=== PATIENT | male | born 1960 | race Caucasian/White ===

== ENCOUNTER 2025-01-19 21:41 | Inpatient (IN) ==
[2025-01-19] MEDS: SODIUM CHLORIDE 0.9% 1,000 ML IV SCH (21:48)
[2025-01-19] MEDS: LORazepam 1 MG/1 ML SYR ED Inj Use IV STA (21:48)
[2025-01-19] MEDS: OPTIRAY 320 100ml IV ONE (21:58)
[2025-01-19 22:03] LABS: Hematocrit (blood only) 31.5 % (42.0-52.0); Hemoglobin 11.8 g/dl (14.0-18.0); Immature Granulocytes # (auto) 0.09 K/uL (0.01-0.20); Immature Granulocytes % (auto) 0.8 %; Mean Corpuscular Hemoglobin 35.9 pg (25.0-34.0); Mean Corpuscular Volume 95.7 fL (80.0-100.0); Platelet Count 394 K/uL (130-400); RDW Standard Deviation 39.4 fL (36.4-46.3); Red Blood Count 3.29 M/uL (4.70-6.10); White Blood Count 11.52 K/ul (4.8-10.8)
[2025-01-19 22:21] LABS: Anion Gap 14.0 (3-11); Bilirubin,Total 1.0 mg/dl (0.2-1.0); Calcium 9.1 mg/dl (8.6-10.3); Carbon Dioxide 23.0 mmol/L (21-32); Chloride 82.0 mmol/L (98-107); Potassium 3.7 mmol/L (3.5-5.1); Sodium 119.0 mmol/L (136-145)
--- NOTE | 2025-01-19 22:23 | CT Scan Report ---
Exam(s): CT HEAD Without Contrast EXAM: CT Head Without Intravenous Contrast CLINICAL HISTORY: Reason for exam: Trauma. TECHNIQUE: Axial computed tomography images of the head/brain without intravenous contrast. CTDI is 64.12 mGy and DLP is 1098.96 mGy-cm. Automated exposure control was utilized for the study. A dose lowering technique was utilized adhering to the principles of ALARA. COMPARISON: None FINDINGS: Brain: No acute infarct or hemorrhage identified. No extra-axial fluid collection. No mass effect or midline shift. Scattered areas of hypoattenuation in the supratentorial white matter likely represent chronic small vessel ischemic changes. Ventricles and sulci: Prominence of the ventricles and sulci is likely secondary to cerebral volume loss. Bones: Normal. No bony lesion or acute fracture. Subcutaneous tissues: Normal. Sinuses: Mild mucosal thickening in the maxillary sinuses, right sphenoid sinus, and frontal sinuses. Moderate mucosal thickening in the ethmoid air cells. Mastoid air cells: Normal. Orbits: Grossly unremarkable. Other: Atherosclerotic calcifications in the intracranial vasculature. IMPRESSION: 1. No acute intracranial abnormality. 2. Mild chronic small vessel ischemic changes and cerebral volume loss. Electronically signed by: Ramon Pierson M.D. 01/19/25 22:22 PM
[2025-01-19 22:26] LABS: Alanine Aminotransferase 39.0 U/L (7-52); Albumin Globulin Ratio 1.4 (0.9-2); Alkaline Phosphatase 95.0 U/L (34-104); Blood Urea Nitrogen 28.0 mg/dl (6-23); Creatinine Clr Calc Pharmacy 51.1 ml/min; Globulin 3.0 gm/dl (2.5-4.0); Glucose 105.0 mg/dl (70-99(Fasting)); Lipase 23.0 U/L (11-82); Total Protein 7.1 gm/dl (6.0-8.3)
--- NOTE | 2025-01-19 22:27 | CT Scan Report ---
Exam(s): CT ABDOMEN + PELVIS With Contrast IV Amt: 90 ml optiray 320 EXAM: CT Abdomen and Pelvis With Intravenous Contrast CLINICAL HISTORY: Reason for exam: Trauma. TECHNIQUE: Axial computed tomography images of the abdomen and pelvis with intravenous contrast. CTDI is 19.59 mGy and DLP is 945.94 mGy-cm. Automated exposure control was utilized for the study. A dose lowering technique was utilized adhering to the principles of ALARA. CONTRAST: Patient received 90 ml optiray 320 of IV contrast COMPARISON: None FINDINGS: Lung bases: Unremarkable. No mass. No consolidation. ABDOMEN: Liver: Hepatic steatosis. Hepatomegaly. Gallbladder and bile ducts: Unremarkable. No calcified stones. No ductal dilation. Pancreas: Unremarkable. No mass. No ductal dilation. Spleen: Unremarkable. No splenomegaly. Adrenals: Unremarkable. No mass. Kidneys and ureters: Unremarkable. No hydronephrosis or obstructing ureteral stone. Stomach and bowel: Evaluation of the stomach is limited by underdistention. Diverticulosis without evidence of diverticulitis. PELVIS: Appendix: Appendix is not definitely visualized on this exam. Bladder: Unremarkable. No mass. Reproductive: Prostatomegaly. ABDOMEN and PELVIS: Intraperitoneal space: Unremarkable. No free air. No significant fluid collection. Bones/joints: Mild curvature of the spine. Degenerative changes of the spine. Grade 1 anterolisthesis of L4 on L5. Mildly displaced fractures of the left posterior 10th and 11th ribs. Question mildly nondisplaced fractures of the left posteromedial 11th and 12th ribs. Nondisplaced fracture of the left L1 transverse process. No dislocation. Soft tissues: Small fat containing umbilical hernia. Vasculature: Phleboliths in the pelvis. Atherosclerotic changes of the vasculature. No abdominal aortic aneurysm or dissection. Lymph nodes: Unremarkable. No enlarged lymph nodes. IMPRESSION: Prostatomegaly. Mildly displaced fractures of the left posterior 10th and 11th ribs. Question mildly nondisplaced fractures of the left posteromedial 11th and 12th ribs. Nondisplaced fracture of the left L1 transverse process. Electronically signed by: Ramon Pierson M.D. 01/19/25 22:26 PM
--- NOTE | 2025-01-19 22:29 | CT Scan Report ---
Exam(s): CT FACIAL Without Contrast EXAM: CT Maxillofacial Without Intravenous Contrast CLINICAL HISTORY: Reason for exam: Trauma. TECHNIQUE: Axial computed tomography images of the face without intravenous contrast. CTDI is 26.96 mGy and DLP is 751.92 mGy-cm. Automated exposure control was utilized for the study. A dose lowering technique was utilized adhering to the principles of ALARA. COMPARISON: None FINDINGS: Bones/joints: No acute facial fracture identified. Soft tissues: Possible mild left maxillary soft tissue swelling. Orbits: Unremarkable. Sinuses: Mild mucosal thickening in the maxillary sinuses. Mild mucosal thickening in the right sphenoid sinus. Moderate mucosal thickening in the ethmoid air cells. Mild mucosal thickening in the frontal sinuses. No air-fluid levels. Dental: Dental disease. IMPRESSION: 1. No acute facial fracture identified. 2. Possible mild left maxillary soft tissue swelling. Electronically signed by: Ramon Pierson M.D. 01/19/25 22:29 PM
[2025-01-19 22:32] LABS: INR 0.9 (0.9-1.1); Partial Thromboplastin Time 22 Seconds (21-31); Prothrombin Time 9.6 Seconds (9.0-12.0)
--- NOTE | 2025-01-19 22:40 | CT Scan Report ---
Exam(s): CT C SPINE EXAM: CT Cervical Spine Without Intravenous Contrast CLINICAL HISTORY: Reason for exam: Trauma. TECHNIQUE: Axial computed tomography images of the cervical spine without intravenous contrast. CTDI is 19.59 mGy and DLP is 945.94 mGy-cm. Automated exposure control was utilized for the study. A dose lowering technique was utilized adhering to the principles of ALARA. COMPARISON: None FINDINGS: Bones: No acute fracture or bony lesion. Disc spaces: Degenerative changes of the spine. Minimal anterolisthesis of C2 on C3 and C4 on C5. Soft tissues: Normal. Other: Small calcified granuloma at the left lung apex. IMPRESSION: No acute traumatic abnormality. Electronically signed by: Ramon Pierson M.D. 01/19/25 22:39 PM
--- NOTE | 2025-01-19 22:52 | XRay Report ---
Exam(s): XR CXR 1 VIEW EXAM: XR Chest, 1 View CLINICAL HISTORY: Reason for exam: Trauma. TECHNIQUE: Frontal view of the chest. COMPARISON: Chest radiograph on 11/01/2013 FINDINGS: Hardware: None. Lungs/pleura: Normal. No focal consolidation. No pleural effusion or pneumothorax. Heart/mediastinum: Normal. No cardiomegaly. Soft tissues: Unremarkable. Bones: No acute fracture. Upper abdomen: Normal. IMPRESSION: No acute disease identified. Electronically signed by: Ramon Pierson M.D. 01/19/25 22:51 PM
[2025-01-19 23:20] LABS: Creatine Kinase 253.0 U/L (30-223)
--- NOTE | 2025-01-19 23:39 | History & Physical Report ---
Date of Service January 19, 2025 Assessment & Plan (1) Alcohol use with withdrawal: (2) Acute hyponatremia: (3) Seizure: (4) Left rib fracture: (5) L1 vertebral fracture: Plan Patient is a 64-year-old male with past medical history of hypertension, hyperlipidemia, alcohol use disorder. Patient presented via EMS after an episode of seizure-like activity at home in which his performed CPR for several minutes until EMS arrived. Patient was found to have a sodium of 119, multiple left rib fractures, L1 left transverse process fracture in the ED. He is being admitted for seizures secondary to hyponatremia versus alcohol withdrawal and fracture management. #seizure-like activity/alcohol withdrawal - seizure at home witnessed by patient's , no history of. Drinks approximately 6-8-8 seltzers per day, last drink unknown however was drinking during the day 01/19. EtOH < 10.0 in ED. Head and face CT negative for acute changes. CK 253, prolactin 51.05. - consult neurology - ED provider spoke with on-call neurologist who recommended to hold off on Keppra load at this time. If patient has another seizure after admission, we will load with Keppra. Treat as alcohol withdrawal seizure and correct sodium. - Gabapentin load and taper started on admission Received Ativan 1 Mg IV x 2 in the ED Active withdrawal protocol with Ativan IV as needed - Thiamine 500 Mg IV and folic acid 1 Mg IV on admission. Continue with Thiamine IV 100mg and folic acid 1mg IV QAM - folate, B12, B1 levels ordered prior to above - seizure precautions - UDS ordered - regarding discharge planning, patient's reports that patient is already in outpatient therapy for alcohol use disorder #hyponatremia - Na 119, symptomatic with seizure like activity above. Hypotonic hyponatremia with extremely dry mucous membranes, poor p.o. intake, and chronic alcohol use. Renal function stable. - UA ordered - 100 mL bolus 3% hypertonic saline ordered on admission - received 1L NSS bolus in ED, continue fluid resuscitation with NSS at 125 mL/hour Hold diuretics - Repeat BMP with a.m. labs in 4 hours #Multiple left rib fractures abdomen pelvis CT revealed mildly displaced fractures of left posterior 10th and 11th ribs, questionable mildly nondisplaced fractures of left posterior medial 11th and 12th ribs. S/p CPR performed by at home. Patient non-hypoxic at time of admission. - Tylenol and Toradol prn; Will try to avoid opioids at this time given sedated with treatment above on admission - Lidoderm patch - incentive spirometry, flutter valve - oxygen as needed O2 goal greater than 92% - PT/OT evals #L1 left transverse process fracture - s/p seizure and CPR above. Noted nondisplaced fracture of left L1 transverse process on abdomen pelvis CT. [facility] consult as no coverage this week Pain control as above PT/OT evals #HTN hypotensive on admission, as low as 92/53. Holding diuretics (spironolactone and HCTZ with hyponatremia above Hold metoprolol and losartan until BP stabilizes #HLD continue aspirin and atorvastatin #Prostatomegaly noted on CT imaging. VTE ppx: Lovenox q24h Dispo: PCU Admission and Anticipated Discharge Date Admission Date: 01/19/25 History of Present Illness Chief Complaint: trauma Primary Care Provider: Faviola Obando Patient is a 64-year-old male with past medical history of hypertension, hyperlipidemia, alcohol use disorder. Patient presented via EMS after an episode of seizure-like activity at home in which his performed CPR for several minutes until EMS arrived. Patient was found to have a sodium of 119, multiple left rib fractures, L1 left transverse process fracture in the ED. He is being admitted for seizures secondary to hyponatremia versus alcohol withdrawal and fracture management. Patient seen at bedside. He received 1mg IV Ativan x2 in the ED and is lethargic however responds to verbal stimuli. He stated he is not in any pain. He stated he typically drinks 4-5 beers per day. He wishes to be full code. The following history was obtained by patient's given patient sleeping. His stated that last week the patient was sick and not eating or drinking m uch and in bed most of the week, he quit drinking at this time. He was feeling better and they went on a vacation over the weekend in which she was drinking his normal amount again. Throughout this week he has been agitated and going on "rants" and talking frequently. Sometimes he does make sense however often does not when he is going on these rants. She stated the patient did faint last Thu however did not have seizure-like activity at this time. He got lightheaded when he went from sitting to standing and he remained on his home blood pressure medication despite being sick and with poor p.o. intake. The patient's stated that this evening the patient was extremely agitated especially towards others family members and acting out of the ordinary, saying things that did not make sense. The patient then began having difficulty finding his words and cannot form a sentence. At this point even raise his left arm and started seizing and collapsed to the ground which she helped lower him gently to. Unclear as to how long the event was. He had a snoring like affect after the event and she began CPR because she was not sure what to do. She called EMS who told her to continue CPR until they arrived several minutes later. When EMS was in the home the patient was mildly responsive however confused. She stated the patient has never had a seizure before. Regarding his alcohol use. She stated over the past several years he has started to drink more and is currently in counseling for this. The patient had extreme difficulty quantifying how much he drank, he said approximately 4-5 beers per day, denies liquor use. The patient's stated he goes through 1 pack of seltzer every 2 days which may consist of 12 to 15 cans. He was drinking all day today. The patient's went to her exercise class this evening and is unsure if he continued drinking. His alcohol level is less than 10 in the ER. He does occasionally use chewing tobacco however no significant use that he would need a nicotine patch at this time. Handoff from ER provider stated that they spoke with on-call neurologist regarding seizure-like activity. Will hold off on Keppra load at this time. If patient has another seizure will load Keppra at that time. Will treat this as an alcohol withdrawal seizure at this time and correct patient's sodium. Allergies Allergy/AdvReac Type Severity Reaction Status Date / Time morphine Allergy Mild . Verified 01/19/25 23:57 Home Medications Medication Instructions Recorded Confirmed Type atorvastatin 10 mg tablet 10 mg PO DAILY 01/19/25 01/19/25 History hydrochlorothiazide 25 mg tablet 25 mg PO DAILY 01/19/25 01/19/25 History losartan 100 mg tablet 100 mg PO DAILY 01/19/25 01/19/25 History metoprolol succinate 50 mg 50 mg PO DAILY 01/19/25 01/19/25 History tablet,extended release 24 hr sildenafil 50 mg tablet 50 mg PO .UD PRN Erectile 01/19/25 01/20/25 History Dysfunction spironolactone 25 mg tablet 25 mg PO DAILY 01/19/25 01/19/25 History aspirin 81 mg tablet,delayed 81 mg PO DAILY 01/20/25 01/20/25 History release Past Med/Surg History Problem List (Updated 01/20/25 @ 01:00 by Reynaldo Valero MD) Hypertension L1 vertebral fracture (Acute) Left rib fracture (Acute) Seizure (Acute) Acute hyponatremia (Acute) Alcohol use with withdrawal (Acute) Social History Smoking Status: Unknown if ever smoked Preferred Language: Georgian Feels Safe at Home: Yes Review of Systems Review of Systems: see HPI Physical Exam Physical Exam: The patient is tired, responds to verbal stimuli. HEENT- EOMI, mucous membranes dry. Hearing grossly intact. Dried blood surro unding mouth. Heart-normal S1 and S2. No murmurs, rubs or gallops. Lungs-clear bilaterally, no respiratory distress, no accessory muscle use. Abdomen-normal bowel sounds and soft. No ascites noted. Non-tender. Extremities- no clubbing, cyanosis, or edema. Results & Data Results & Data Vital Signs (Past 12 Hours) Vital Signs Temp Pulse Pulse Resp BP BP Pulse Ox 01/19/25 23:00 67 18 92/53 L 99 01/19/25 22:12 80 20 127/80 98 01/19/25 21:45 36.9 C 79 22 125/101 H 98 01/19/25 21:43 36.9 C 79 16 125/101 H 98 01/19/25 21:43 36.9 C 79 20 98 O2 Del Method O2 Flow Rate 01/19/25 23:00 Room Air 01/19/25 22:12 Room Air 01/19/25 21:45 Room Air 01/19/25 21:43 Room Air 0 01/19/25 21:43 Room Air Laboratory Results Reviewed CBC, PT/INR, CMP, magnesium, CK, prolactin, alcohol level Ordered B12, folate, B1, UA, UDS Diagnostic Findings reviewed head CT, face CT, CXR, cervical spine CT, abdomen pelvis CT Medications Administered ED - ativan 1mg IV x1, 1l NSS bolus, NSS @ 125ml/hr admission - gabapetnin load, folic acid 1mg iv, thiamine 500mg IV, hypertonic saline 100 ml ECG Additional Comments: ordered Code Status & VTE Plan Code Status full code VTE Prophylaxis Plan VTE Prophylaxis will be ordered: Yes Supervising Physician Co-Signing Physician Notes Attending addendum: I have physically seen this patient, have supervised the HAWA's activities, and agree with the H&P unless as otherwise noted. Assessment and Plan: The patient is a 64-year-old male with a past medical history including hypertension, hyperlipidemia and alcohol use disorder. The patient presented to the emergency department via EMS after an episode of seizure-like activity witnessed by his , who performed CPR for several minutes until EMS arrived. Workup in the emergency department included a sodium of 119, multiple left rib fractures, left L1 transverse process fracture. Patient is admitted to [facility] for altered mentation with concerns including hyponatremia, alcohol withdrawal, and for fracture management. Seizure-like activity/alcohol withdrawal- Seizures noted by patient's at home He has no previous history of seizures. Most likely secondary to alcohol withdrawal and/or hyponatremia No Keppra per recommendation of on-call neurologist Placed on gabapentin load and taper per protocol Received Ativan 1 mg IV x 2 from the ED AWSS protocol with IV Ativan Thiamine 5 mg IV now to 100 mg IV daily Folic acid 1 mg IV now, to 1 mg IV every morning Seizure precautions Urine drug screen ordered Per , patient is already in outpatient therapy for alcohol use disorder Hyponatremia- Sodium 119 on admission Status post 1 L normal saline bolus from the ED Continue normal saline 125 mL/h Give a single dose of 100 mL of 3% hypertonic saline Patient not alert enough to take sodium chloride tablets, but may be started in the a.m. Holding HCTZ, losartan and spironolactone BMP every 4 hours Multiple left rib fractures/L1 transverse process fracture- Pain control with Tylenol and Toradol as needed as noted Lidoderm patch Incentive spirometry and flutter valve PT/OT evaluation Hypertension- Holding and hypertensives as noted, due to hypotension on admission Hyperlipidemia- Continue aspirin and atorvastatin when alert PG Care Time/CCT Total # of Minutes Spent Total Time Spent with Patient: Total time spent is greater than 50% in coordination of care (as documented) at patient's floor/unit and/or counseling patient: Coding Level of Care Code 83564 INT INP/OBS CARE 3/75MIN Diagnoses Alcohol use with withdrawal F10.939 Acute hyponatremia E87.1 Seizure R56.9 Left rib fracture S22.32XA L1 vertebral fracture S32.019A
[2025-01-20] MEDS ORDERED: STAT IV/IM STA (00:01)
[2025-01-20] MEDS ORDERED: GABAPENTIN 1200MG ALCOHOL WITHDRAWAL LOAD PO STA (00:01)
[2025-01-20 00:07] LABS: Magnesium 2.2 mg/dl (1.7-2.4)
[2025-01-20 00:34] LABS: Folate (Folic Acid),Ser orPlas 12.88 ng/ml (>5.38); Vitamin B12 450.0 pg/ml (180-914)
--- NOTE | 2025-01-20 00:50 | Emergency Department Note ---
History of Present Illness General Chief complaint: Trauma Stated complaint: Fall, ETOH, Combative Time Seen by Provider: 01/19/25 21:42 Source: patient, family and EMS History of Present Illness Provider complaint: Fall 63-year-old male presents emergency department for fall. Patient is reportedly an alcoholic and has been drinking truly hard seltzers all day. states she got home and the patient was very confused and having difficulty speaking. She states the patient fell and hit his head and then had seizure-like activity. She states she started doing chest compressions on the patient and that stopped the patient's seizure-like activity. reports that the patient has been increasingly manic for the last couple weeks. She states over the last 3 weeks he has fallen multiple times. She reports this started 3 weeks ago when he fell and hurt his back. No urinary incontinence. EMS reports that the patient was attacked by a cat today and that is why he has scratches and bleeding all over his body. Home Medications Medication Instructions Recorded Confirmed Type atorvastatin 10 mg tablet 10 mg PO DAILY 01/19/25 01/19/25 History hydrochlorothiazide 25 mg tablet 25 mg PO DAILY 01/19/25 01/19/25 History losartan 100 mg tablet 100 mg PO DAILY 01/19/25 01/19/25 History metoprolol succinate 50 mg 50 mg PO DAILY 01/19/25 01/19/25 History tablet,extended release 24 hr sildenafil 50 mg tablet 50 mg PO .UD PRN Erectile 01/19/25 01/20/25 History Dysfunction spironolactone 25 mg tablet 25 mg PO DAILY 01/19/25 01/19/25 History aspirin 81 mg tablet,delayed 81 mg PO DAILY 01/20/25 01/20/25 History release Allergies Allergy/AdvReac Type Severity Reaction Status Date / Time morphine Allergy Mild . Verified 01/19/25 23:57 Past Med/Surg History Problem List (Updated 01/20/25 @ 01:00 by Reynaldo Valero MD) Hypertension L1 vertebral fracture (Acute) Left rib fracture (Acute) Seizure (Acute) Acute hyponatremia (Acute) Alcohol use with withdrawal (Acute) Social History Smoking Status: Unknown if ever smoked Preferred Language: [place] Feels Safe at Home: Yes Physical Exam Vital Signs Vital Signs - 24 hr 01/19/25 21:43 01/19/25 21:43 01/19/25 21:45 Temperature 36.9 C 36.9 C 36.9 C Temperature Source Oral Oral Pulse Rate 79 79 Pulse Rate [Apical] 79 Pulse Rate from SpO2 Sensor Pulse Rhythm [Apical] Pulse Strength [Apical] Respiratory Rate 20 16 22 Respiratory Effort / Characteristics Non-Labored Respiratory Depth Normal Respiratory Pattern Blood Pressure 125/101 H Blood Pressure [Right Arm] 125/101 H Blood Pressure Mean Blood Pressure Mean [Right Arm] 109 Blood Pressure Position [Right Arm] Pulse Oximetry 98 98 98 Oxygen Delivery Method Room Air Room Air Room Air Oxygen Flow Rate 0 Sepsis Recent Fever Within 48 Hours No Sepsis New/Unexplained Change in Mental Status No Sepsis Action Taken by Nursing No Action Required 01/19/25 22:12 01/19/25 23:00 01/19/25 23:26 Temperature Temperature Source Pulse Rate 80 Pulse Rate [Apical] 67 69 Pulse Rate from SpO2 Sensor 79 Pulse Rhythm [Apical] Regular Pulse Strength [Apical] Normal Respiratory Rate 20 18 16 Respiratory Effort / Characteristics Non-Labored Spontaneous Respiratory Depth Normal Respiratory Pattern Regular Blood Pressure 127/80 Blood Pressure [Right Arm] 92/53 L 115/71 Blood Pressure Mean 95 Blood Pressure Mean [Right Arm] 66 85 Blood Pressure Position [Right Arm] Lying Pulse Oximetry 98 99 91 Oxygen Delivery Method Room Air Room Air Room Air Oxygen Flow Rate Sepsis Recent Fever Within 48 Hours Sepsis New/Unexplained Change in Mental Status Sepsis Action Taken by Nursing 01/20/25 00:00 Temperature Temperature Source Pulse Rate Pulse Rate [Apical] 72 Pulse Rate from SpO2 Sensor Pulse Rhythm [Apical] Regular Pulse Strength [Apical] Normal Respiratory Rate 16 Respiratory Effort / Characteristics Non-Labored Spontaneous Respiratory Depth Normal Respiratory Pattern Regular Blood Pressure Blood Pressure [Right Arm] 105/69 Blood Pressure Mean Blood Pressure Mean [Right Arm] 81 Blood Pressure Position [Right Arm] Lying Pulse Oximetry 97 Oxygen Delivery Method Room Air Oxygen Flow Rate Sepsis Recent Fever Within 48 Hours Sepsis New/Unexplained Change in Mental Status Sepsis Action Taken by Nursing Primary Survey Airway: Intact Breathing: Normal, breath sounds equal bilaterally Circulation: Skin warm, distal pulses 2+, capillary refill less than 2 seconds Disability Pupils: Equal and reactive to light, 2 mm, brisk GCS: 14, E = 4 V=4 M= 6 Motor Function: Moves all extremities. Sensory: No deficits Secondary Survey GEN: Patient has pressured speech. HEAD: Normocephallic atruamatic EYES: Pupils round reactive to light, conjunctiva clear, extraocular movements intact, no raccoons eyes ENT: no winn's sign, nares patent, oropharynx clear NECK: No JVD, midline trachea, no cervical spine tenderness HEART: Regular rate and rhythm LUNGS: Clear to auscultation bilaterally. CHEST: Chest wall non-tender, no bruising/deformity ABD: soft, non-tender, no rebound or guarding, MUSC: Pelvis stable. No step offs or deformities, T-L spine non tender. Pain on palpation of the right and left thoracic and lumbar paraspinal muscles. NEURO: CNII-XII grossly intact, no sensory deficits SKIN: Abrasions to the bilateral extremities Course Course 2141: The patient was evaluated in room A1. A complete history and physical exam was performed Cardiac monitoring: An order was placed for continuous cardiac monitoring. The monitor shows a rate of 100 with sinus rhythm interpreted by nh Trauma alert was activated. 2150: Chest x-ray viewed by me negative. I-STAT shows a serum sodium of 117. 2204: CT head viewed by me negative. 4: Patient more calm and vital signs stable status post Ativan IV in the emergency department. Labs are significant for a sodium of 119. Serum alcohol is undetectable. AST [address] of the head and neck are negative. CT facial bones negative. CT abdomen pelvis does show mildly displaced fractures of the left posterior 10th and 11th rib and a question mildly nondisplaced fracture of the left posterior middle 11th and 12th rib. There is also a nondisplaced L1 transverse process fracture. Patient's prolactin is elevated. It is thought that the patient truly had a seizure and it could be that the patient was having alcohol withdrawal seizure. Discussed the case with on-call neurology Dr. Cannon. He states to treat the patient as if he had an alcohol withdrawal seizure. He recommends replacing the patient's sodium also. Patient is alert and oriented x 3 with no seizure-like activity witnessed in the emergency department will not push hypertonic saline at this time. Dr. Cannon states to hold off on any Keppra or other antiepileptics. He states if the patient has another seizure to give Keppra then. Patient will be admitted to the hospitalist team. Administered Medications Discontinued Medications Sodium Chloride (Nss) 1,000 mls @ 999 mls/hr IV .Q1H1M CHRISTIANO Stop: 01/19/25 22:45 Last Infusion: 01/20/25 00:19 Dose: Infused Documented By: LUZ ELENA Admin: 01/19/25 21:48 Dose: 999 mls/hr Documented By: WEN Ioversol (Optiray 320 100ml) 90 ml IV ONCE ONE Stop: 01/19/25 21:59 Last Admin: 01/19/25 21:58 Dose: 90 ml Documented By: SINGH Lorazepam (Lorazepam 1 Mg/1 Ml Syr Ed Inj Use) 1 mg IV ONE STA Stop: 01/19/25 21:43 Last Admin: 01/19/25 21:48 Dose: 1 mg Documented By: WEN Lorazepam (Lorazepam 2 Mg/1 Ml Vial) 1 mg IV NOW STA Stop: 01/19/25 22:16 Last Admin: 01/19/25 22:19 Dose: 1 mg Documented By: WEN Critical Care Time Critical Care Time: Yes Total Critical Care Time: 50 I have personally spent greater than 50 minutes of critical care time in the direct management of this patient. This includes bedside care, interpretation of diagnostic studies, and testing, discussion with consultants, patient, and family members, and other required patient management activities. This 50 minutes is in excess of all separately billable procedures. Medical Decision Making Laboratory Data Attestation: I reviewed the patient's lab results. 01/19/25 21:43 01/19/25 21:43 Lab Results 01/19/25 01/19/25 Range/Units 21:43 21:49 WBC 11.52 H (4.8-10.8) K/ul RBC 3.29 L (4.70-6.10) M/uL Hgb 11.8 L (14.0-18.0) g/dl POC Hgb 12.2 L (14.0-18.0) g/dl Hct 31.5 L (42.0-52.0) % POC Hct 36 L (42-52) % MCV 95.7 (80.0-100.0) fL MCH 35.9 H (25.0-34.0) pg MCHC 37.5 H (32.0-36.0) g/dL RDW Std Deviation 39.4 (36.4-46.3) fL RDW Coeff of Jf 11.2 L (11.5-14.5) % Plt Count 394 (130-400) K/uL MPV 8.4 L (9.4-12.4) fL Immature Gran % (Auto) 0.8 % Neut % (Auto) 72.1 % Lymph % (Auto) 16.3 % [place] % (Auto) 8.9 % Eos % (Auto) 1.4 % Baso % (Auto) 0.5 % Neut # (Auto) 8.30 H (1.40-6.50) K/uL Lymph # (Auto) 1.88 (1.20-3.40) K/uL [place] # (Auto) 1.03 H (0.11-0.59) K/uL Eos # (Auto) 0.16 (0.00-0.50) K/uL Baso # (Auto) 0.06 (0.00-0.20) K/uL Immature Gran # (Auto) 0.09 (0.01-0.20) K/uL PT 9.6 (9.0-12.0) Seconds INR 0.9 (0.9-1.1) APTT 22 (21-31) Seconds PTT Ratio 0.8 POC Sodium 117 L* (135-144) mmol/L Sodium 119 L* (136-145) mmol/L POC Potassium 3.8 (3.3-5.0) mmol/L Potassium 3.7 (3.5-5.1) mmol/L POC Chloride 85 L (101-112) mmol/L Chloride 82 L (98-107) mmol/L Carbon Dioxide 23 (21-32) mmol/L POC Total CO2 21 L (24-31) mmol/L Anion Gap 14 H (3-11) POC Anion Gap 16.0 (16-25) mmol/L POC BUN 24 H (7-18) mg/dl BUN 28 H (6-23) mg/dl Creatinine 1.34 (0.6-1.4) mg/dl POC Creatinine 1.5 H (0.6-1.3) mg/dl Est Cr Clr Drug Dosing 51.1 ml/min eGFR 59.52 BUN/Creatinine Ratio 20.9 H (10-20) Glucose 105 H (70-99(Fasting)) mg/dl POC Glucose (other) 106 H (70-99) mg/dl Calcium 9.1 (8.6-10.3) mg/dl POC Ioniz Calcium Slime 1.09 L (1.12-1.32) mmol/l Magnesium 2.2 (1.7-2.4) mg/dl Total Bilirubin 1.0 (0.2-1.0) mg/dl AST 46 H (13-39) U/L ALT 39 (7-52) U/L Alkaline Phosphatase 95 (34-104) U/L Total Creatine Kinase 253 H (30-223) U/L Total Protein 7.1 (6.0-8.3) gm/dl Albumin 4.1 (3.4-5.0) gm/dl Globulin 3.0 (2.5-4.0) gm/dl Albumin/Globulin Ratio 1.4 (0.9-2) Lipase 23 (11-82) U/L Vitamin B12 450 (180-914) pg/ml Folate 12.88 (>5.38) ng/ml Prolactin 51.05 ng/ml Ethyl Alcohol mg/dL < 10.0 (<10.0) mg/dl Imaging Data Attestation: I personally reviewed and interpreted this imaging study as follows: My Impression: Chest x-ray: Chest x-ray negative. Airway clear. No pneumothorax. No consolidation. No cardiomegaly or cephalization.. No free air under the diaphragm. No fractures of the skeletal structures. CT head: No ICH Radiologist's Impression: Abdomen/Pelvis CT 01/19/25 21:43 Exam(s): CT ABDOMEN + PELVIS With Contrast IV Amt: 90 ml optiray 320 EXAM: CT Abdomen and Pelvis With Intravenous Contrast CLINICAL HISTORY: Reason for exam: Trauma. TECHNIQUE: Axial computed tomography images of the abdomen and pelvis with intravenous contrast. CTDI is 19.59 mGy and DLP is 945.94 mGy-cm. Automated exposure control was utilized for the study. A dose lowering technique was utilized adhering to the principles of ALARA. CONTRAST: Patient received 90 ml optiray 320 of IV contrast COMPARISON: None FINDINGS: Lung bases: Unremarkable. No mass. No consolidation. ABDOMEN: Liver: Hepatic steatosis. Hepatomegaly. Gallbladder and bile ducts: Unremarkable. No calcified stones. No ductal dilation. Pancreas: Unremarkable. No mass. No ductal dilation. Spleen: Unremarkable. No splenomegaly. Adrenals: Unremarkable. No mass. Kidneys and ureters: Unremarkable. No hydronephrosis or obstructing ureteral stone. Stomach and bowel: Evaluation of the stomach is limited by underdistention. Diverticulosis without evidence of diverticulitis. PELVIS: Appendix: Appendix is not definitely visualized on this exam. Bladder: Unremarkable. No mass. Reproductive: Prostatomegaly. ABDOMEN and PELVIS: Intraperitoneal space: Unremarkable. No free air. No significant fluid collection. Bones/joints: Mild curvature of the spine. Degenerative changes of the spine. Grade 1 anterolisthesis of L4 on L5. Mildly displaced fractures of the left posterior 10th and 11th ribs. Question mildly nondisplaced fractures of the left posteromedial 11th and 12th ribs. Nondisplaced fracture of the left L1 transverse process. No dislocation. Soft tissues: Small fat containing umbilical hernia. Vasculature: Phleboliths in the pelvis. Atherosclerotic changes of the vasculature. No abdominal aortic aneurysm or dissection. Lymph nodes: Unremarkable. No enlarged lymph nodes. IMPRESSION: Prostatomegaly. Mildly displaced fractures of the left posterior 10th and 11th ribs. Question mildly nondisplaced fractures of the left posteromedial 11th and 12th ribs. Nondisplaced fracture of the left L1 transverse process. Electronically signed by: Ramon Pierson M.D. 01/19/25 22:[address] 01/19/25 21:43 Exam(s): CT C SPINE EXAM: CT Cervical Spine Without Intravenous Contrast CLINICAL HISTORY: Reason for exam: Trauma. TECHNIQUE: Axial computed tomography images of the cervical spine without intravenous contrast. CTDI is 19.59 mGy and DLP is 945.94 mGy-cm. Automated exposure control was utilized for the study. A dose lowering technique was utilized adhering to the principles of ALARA. COMPARISON: None FINDINGS: Bones: No acute fracture or bony lesion. Disc spaces: Degenerative changes of the spine. Minimal anterolisthesis of C2 on C3 and C4 on C5. Soft tissues: Normal. Other: Small calcified granuloma at the left lung apex. IMPRESSION: No acute traumatic abnormality. Electronically signed by: Ramon Pierson M.D. 01/19/25 22:39 PM Chest X-Ray 01/19/25 21:43 Exam(s): XR CXR 1 VIEW EXAM: XR Chest, 1 View CLINICAL HISTORY: Reason for exam: Trauma. TECHNIQUE: Frontal view of the chest. COMPARISON: Chest radiograph on 11/01/2013 FINDINGS: Hardware: None. Lungs/pleura: Normal. No focal consolidation. No pleural effusion or pneumothorax. Heart/mediastinum: Normal. No cardiomegaly. Soft tissues: Unremarkable. Bones: No acute fracture. Upper abdomen: Normal. IMPRESSION: No acute disease identified. Electronically signed by: Ramon Pierson M.D. 01/19/25 22:[address] 01/19/25 21:43 Exam(s): CT FACIAL Without Contrast EXAM: CT Maxillofacial Without Intravenous Contrast CLINICAL HISTORY: Reason for exam: Trauma. TECHNIQUE: Axial computed tomography images of the face without intravenous contrast. CTDI is 26.96 mGy and DLP is 751.92 mGy-cm. Automated exposure control was utilized for the study. A dose lowering technique was utilized adhering to the principles of ALARA. COMPARISON: None FINDINGS: Bones/joints: No acute facial fracture identified. Soft tissues: Possible mild left maxillary soft tissue swelling. Orbits: Unremarkable. Sinuses: Mild mucosal thickening in the maxillary sinuses. Mild mucosal thickening in the right sphenoid sinus. Moderate mucosal thickening in the ethmoid air cells. Mild mucosal thickening in the frontal sinuses. No air-fluid levels. Dental: Dental disease. IMPRESSION: 1. No acute facial fracture identified. 2. Possible mild left maxillary soft tissue swelling. Electronically signed by: Ramon Pierson M.D. 01/19/25 22:[address] 01/19/25 21:43 Exam(s): CT HEAD Without Contrast EXAM: CT Head Without Intravenous Contrast CLINICAL HISTORY: Reason for exam: Trauma. TECHNIQUE: Axial computed tomography images of the head/brain without intravenous contrast. CTDI is 64.12 mGy and DLP is 1098.96 mGy-cm. Automated exposure control was utilized for the study. A dose lowering technique was utilized adhering to the principles of ALARA. COMPARISON: None FINDINGS: Brain: No acute infarct or hemorrhage identified. No extra-axial fluid collection. No mass effect or midline shift. Scattered areas of hypoattenuation in the supratentorial white matter likely represent chronic small vessel ischemic changes. Ventricles and sulci: Prominence of the ventricles and sulci is likely secondary to cerebral volume loss. Bones: Normal. No bony lesion or acute fracture. Subcutaneous tissues: Normal. Sinuses: Mild mucosal thickening in the maxillary sinuses, right sphenoid sinus, and frontal sinuses. Moderate mucosal thickening in the ethmoid air cells. Mastoid air cells: Normal. Orbits: Grossly unremarkable. Other: Atherosclerotic calcifications in the intracranial vasculature. IMPRESSION: 1. No acute intracranial abnormality. 2. Mild chronic small vessel ischemic changes and cerebral volume loss. Electronically signed by: Ramon Pierson M.D. 01/19/25 22:22 PM [facility] Narrative 2142: The patient was evaluated in room A1. A complete history and physical exam was performed Cardiac monitoring: An order was placed for continuous cardiac monitoring. The monitor shows a rate of 100 with sinus rhythm interpreted by [facility] Trauma alert was activated. 2150: Chest x-ray viewed by me negative. I-STAT shows a serum sodium of 117. 2204: CT head viewed by me negative. 2314: Patient more calm and vital signs stable status post Ativan IV in the emergency department. Labs are significant for a sodium of 119. Serum alcohol is undetectable. AST [address] of the head and neck are negative. CT facial bones negative. CT abdomen pelvis does show mildly displaced fractures of the left posterior 10th and 11th rib and a question mildly nondisplaced fracture of the left posterior middle 11th and 12th rib. There is also a nondisplaced L1 transverse process fracture. Patient's prolactin is elevated. It is thought that the patient truly had a seizure and it could be that the patient was having alcohol withdrawal seizure. Discussed the case with on-call neurology Dr. Cannon. He states to treat the patient as if he had an alcohol withdrawal seizure. He recommends replacing the patient's sodium also. Patient is alert and oriented x 3 with no seizure-like activity witnessed in the emergency department will not push hypertonic saline at this time. Dr. Cannon states to hold off on any Keppra or other antiepileptics. He states if the patient has another seizure to give Keppra then. Patient will be admitted to the hospitalist team. Impression & Plan Acute hyponatremia, Seizure, Left rib fracture, L1 vertebral fracture, Alcohol use with withdrawal Discharge Plan Visit Data Chief Complaint: Trauma Stated Complaint: Fall, ETOH, Combative ED Provider: Reynaldo Valero Discharge Problem: Acute hyponatremia, Seizure, Left rib fracture, L1 vertebral fracture, Alcohol use with withdrawal Patient Disposition: Admitted As Inpatient Condition: Fair Forms Stand Alone Forms: [facility] [employer] Prescriptions Prescriptions: No Action sildenafil 50 mg tablet 50 mg PO .UD PRN (Reason: Erectile Dysfunction) atorvastatin 10 mg tablet 10 mg PO DAILY metoprolol succinate 50 mg tablet extended release 24 hr 50 mg PO DAILY spironolactone 25 mg tablet 25 mg PO DAILY hydrochlorothiazide 25 mg tablet 25 mg PO DAILY losartan 100 mg tablet 100 mg PO DAILY aspirin [Aspir-81] 81 mg Tablet,Delayed Release (Dr/Ec) 81 mg PO DAILY Referrals Referrals: Faviola Obando [Primary Care Provider] -
[2025-01-20] MEDS: SODIUM CHLORIDE 3 % 100 ML IV ONE (00:59)
[2025-01-20] MEDS: THIAMINE HCL 500 MG in SODIUM CHLORIDE 0.9% 50 ML IV STA (01:12)
[2025-01-20] MEDS: FOLIC ACID 1 MG in SYRINGE 9.8 ML IV STA (01:12)
[2025-01-20 01:17] LABS: Appearance Urine Clear (Clear); Glucose Urine UA Negative (Negative)
[2025-01-20] MEDS: GABAPENTIN 600 MG TAB PO ONE (01:41)
[2025-01-20] MEDS: SODIUM CHLORIDE 0.9% 1,000 ML IV SCH (01:43)
[2025-01-20 01:45] LABS: Amphetamines+Metham, Urine Neg (Neg); MDMA (Ecstacy), Urine Neg (Neg); Marijuana, Urine Pos (Neg)
[2025-01-20] MEDS ORDERED: KETOROLAC TROMETHAMINE 15 MG/ML VIAL IV PRN (02:18)
[2025-01-20] MEDS ORDERED: DOCUSATE SODIUM 100 MG CAP PO PRN (02:18)
[2025-01-20] MEDS ORDERED: ONDANSETRON INJ 2 MG/ML 2 ML VIAL IV PRN (02:18)
[2025-01-20] MEDS ORDERED: NALOXONE HCL 0.4 MG/1 ML VIAL/CARP IV PRN (02:18)
[2025-01-20] MEDS ORDERED: ACETAMINOPHEN 325 MG TAB PO PRN (02:18)
[2025-01-20] MEDS ORDERED: Ativan IV Alcohol Withdrawal--Active Protocol IV PRN (02:18)
[2025-01-20] MEDS: DIPHTHER/TETAN/PERTUS Vaccine (Tdap, Adol/Adult) 0.5mL IM ONE (02:21)
[2025-01-20 06:56] LABS: Hematocrit (blood only) 29.3 % (42.0-52.0); Hemoglobin 10.5 g/dl (14.0-18.0); Immature Granulocytes # (auto) 0.05 K/uL (0.01-0.20); Immature Granulocytes % (auto) 0.5 %; Mean Corpuscular Hemoglobin 35.5 pg (25.0-34.0); Mean Corpuscular Volume 99.0 fL (80.0-100.0); Platelet Count 314 K/uL (130-400); RDW Standard Deviation 42.0 fL (36.4-46.3); Red Blood Count 2.96 M/uL (4.70-6.10); White Blood Count 9.66 K/ul (4.8-10.8)
[2025-01-20 07:14] LABS: Magnesium 2.1 mg/dl (1.7-2.4)
[2025-01-20] MEDS: ASPIRIN 81 MG ECTAB PO SCH (08:02)
[2025-01-20] MEDS: ATORVASTATIN 10 MG TAB PO SCH (08:02)
[2025-01-20] MEDS: MULTIVITAMIN TAB PO SCH (08:02)
[2025-01-20] MEDS: GABAPENTIN 600 MG TAB PO SCH (08:04)
[2025-01-20] MEDS: THIAMINE HCL 100 MG in SYRINGE 9 ML IV SCH (08:05)
[2025-01-20] MEDS: ENOXAPARIN INJ 40 MG/0.4 ML SYR SQ SCH (08:05)
[2025-01-20] MEDS: FOLIC ACID 1 MG in SYRINGE 9.8 ML IV SCH (08:05)
[2025-01-20] MEDS: LIDOCAINE 5% 1 PATCH TD SCH (08:06)
[2025-01-20 09:20] LABS: Anion Gap 8.0 (3-11); Blood Urea Nitrogen 18.0 mg/dl (6-23); Calcium 8.4 mg/dl (8.6-10.3); Carbon Dioxide 28.0 mmol/L (21-32); Chloride 94.0 mmol/L (98-107); Creatinine Clr Calc Pharmacy 72.0 ml/min; Glucose 73.0 mg/dl (70-99(Fasting)); Potassium 3.2 mmol/L (3.5-5.1); Sodium 130.0 mmol/L (136-145)
[2025-01-20] MEDS: DEXTROSE 5% 1,000 ML IV SCH (09:45)
--- NOTE | 2025-01-20 09:56 | Neurology Consultation ---
Date of Consultation January 20, 2025 Assessment & Plan (1) Seizure: (2) Acute hyponatremia: (3) Alcohol use with withdrawal: Plan This patient had a seizure on the evening of January 19, likely generalized tonic-clonic due to hyponatremia. Given the patient's history of alcohol use and an alcohol level of 0, an alcohol withdrawal seizure is possible. Currently the patient is doing well and he has no focal deficits, meningeal signs, or encephalopathy. The etiology of the hyponatremia is likely related to his alcohol use. This morning alcohol level was 130. Recommendations: 1. MRI of the brain with and without contrast 2. Hold on anticonvulsants for now. 3. Watch for alcohol withdrawal symptoms treat accordingly 4. Increase activity as able. 5. I have no further specific neurologic recommendations to make at this time except to avoid alcohol is much as possible Overall, I spent a total of 75 minutes with this case including review of records, direct evaluation of the patient, report generation, and discussion of the case with the patient and RN at bedside and Dr. Coley, including differential diagnosis and treatment options. History of Present Illness Reason for Consultation: Patient is a 64-year-old who I was asked to see at the request of MEHDI Alarcon, for neurologic evaluation regarding seizures Requesting Physician: Dilcia Madrid PA-C Attending Physician: Simba Coley MD History of Present Illness This patient has a history of hypertension on hydrochlorothiazide, losartan, and metoprolol. Although he was on 81 mg aspirin in the past, he is no longer on this. He takes atorvastatin 10 for dyslipidemia. He has no history of seizures. About 3 weeks ago he was in his garage working on a project when he was stepping backwards and tripped. He fell and hit the left side of his chest but not his head. About 2 weeks ago he had flulike symptoms and got up out of bed again tripping in the dark and hitting the right side of his head. There was no loss of consciousness or other sequelae such as headaches. This patient has been frequently drinking hard seltzers (Truly and White [employer]aw), as much as 6/day. Some days it is only 1 or 2. The patient remembers getting up feeling fine on January 19 and he was busy throughout the day. He does not remember the evening. Apparently he was confused with decreased speech and seizure-like activity. He did bite the tip of his tongue and may have had some urinary incontinence. On January 19, at 2142 temperature was 36.9, pulse 79, respiratory rate 20, blood pressure 125/101, and O2 saturation 98%. He was given 1 lorazepam 2 times in the ER but he had no seizure activity in the ER. CBC was unremarkable. CHEM profile showed a sodium of 119 and a mildly elevated BUN. Magnesium and glucose and liver profile were unremarkable. Prolactin was elevated at 51 and CK at 253. B12, folate, liver profile, and urinalysis were unremarkable. Toxicology screen showed an alcohol level of 0 and he was positive for marijuana (vapes) He was given gabapentin 600 mg and has remained on this. CT scan of the head was unremarkable. CT scan of the face, cervical spine, and abdomen and pelvis were largely unremarkable. Today he is doing well and he feels back to his baseline. He did get up and walk according to the nurses without issue. He denies headache, pain, dizziness, vision problems, weakness, numbness, or balance issues. Blood pressures 100/66 and he is afebrile. Allergies Allergy/AdvReac Type Severity Reaction Status Date / Time morphine Allergy Mild . Verified 01/19/25 23:57 Home Medications Medication Instructions Recorded Confirmed Type atorvastatin 10 mg tablet 10 mg PO DAILY 01/19/25 01/19/25 History hydrochlorothiazide 25 mg tablet 25 mg PO DAILY 01/19/25 01/19/25 History losartan 100 mg tablet 100 mg PO DAILY 01/19/25 01/19/25 History metoprolol succinate 50 mg 50 mg PO DAILY 01/19/25 01/19/25 History tablet,extended release 24 hr sildenafil 50 mg tablet 50 mg PO .UD PRN Erectile 01/19/25 01/20/25 History Dysfunction spironolactone 25 mg tablet 25 mg PO DAILY 01/19/25 01/19/25 History aspirin 81 mg tablet,delayed 81 mg PO DAILY 01/20/25 01/20/25 History release Patient History Family History (Updated 01/20/25 @ 09:49 by Blayne Cannon MD) Mother , age 70 Diabetes Father , Diet in his late 20s of pneumonia No problems noted. Social History (Updated 01/20/25 @ 09:49 by Blayne Cannon MD) Smoking Status: Former smoker Tobacco Type: Smokeless Tobacco (Dip or Chew) Cigarettes Per Day: He smoked for a few years in his teens only; Hx Alcohol Use: Yes Alcohol type: other Alcohol Intake Frequency: 4 or More x per/Week Alcohol Intake Frequency Comment: 2-6 hard seltzers per day on average Hx Substance Use: Yes Last Used Substance: Unknown Preferred Language: Welsh Communication Ability: Effective Fixed Income Director Required: No Beliefs That Will Affect Care: None Current Living Situation: Spouse current occupational status: retired current occupation: Former computer support technician retiring several years ago. Feels Safe at Home: Yes Assistive Devices: None Review of Systems Constitutional: no fever, no fatigue and no weakness Eyes: no diplopia, no eye pain and no worsening vision Ear, Nose, Mouth, Throat: no ear pain, no tinnitus, no hearing loss, no dizzin ess, no snoring, no hoarseness and no dysphagia Respiratory: no cough and no dyspnea Cardiovascular: no chest pain, no palpitations and no lightheadedness Gastrointestinal: no abdominal pain, no nausea and no vomiting Musculoskeletal: no back pain, no neck pain, no radicular pain, no joint pain and no myalgia Integumentary: no rash and no lesions Neurologic: no gait abnormality, no localized weakness, no generalized weakness, no tingling, no numbness, no tremor(s), no abnormal movements, no headache(s), no abnormal speech, no confusion and no memory loss Psychiatric: no depression, no irritability, no anxiety, no difficulty concentrating, no confusion and no hallucinations Endocrine: no fatigue and no flushing Hematologic / Lymphatic: no easy bleeding and no easy bruising Allergy / Immunological: no urticaria and no problem reported Exam (Neuro) 2 Physical Exam: The patient is right-handed. The patient is awake, alert, and attentive. Speech is without any aphasia or dysarthria, but it is somewhat pressured. Talks nearly continuously.. Mentation and thought processes are intact, with full orientation and normal fund of knowledge. Mood and affect are normal and appropriate. Appearance and grooming are normal. Short and long-term memory are intact to conversation although he has no recall of events of last evening.. Pupils are 4 mm bilaterally and reactive to light. Extraocular eye muscles are intact without nystagmus. Visual acuity and visual holland seem normal grossly to confrontation. There are no deficits to sensation in the face in all 3 distributions of the fifth cranial nerve bilaterally. Corneal reflexes are positive bilaterally. Facial strength and symmetry was normal bilaterally. Hearing seems intact grossly to voice and finger rub bilaterally. Palate moves well without asymm etry. There is normal sternocleidomastoid and trapezius strength bilaterally. Tongue is midline with good strength bilaterally. Neck has a full range of motion without discomfort. Cervical, thoracic, and lumbar spine are nontender to palpation. Gait was not tested but stands sitting up in bed extremities With outstretched arms there is no drift. There are no resting, postural, or action tremors. There is no ataxia with finger to nose testing. There is good facility in the hands. No other abnormal involuntary movements are noted. Motor strength is 5/5 diffusely in the arms bilaterally including deltoids, biceps, triceps, brachioradialis, wrist flexors and extensors, senior mainframe programmer analyst, and intrinsic hand muscles. Motor strength is 5/5 diffusely in the legs bilaterally including hip flexors, quadriceps, hamstrings, gastrocnemius, tibialis anterior, tibialis posterior, and Peroneii muscles bilaterally. Toe extensors are normal and there is good bulk in the extensor digitorum brevis muscles bilaterally. The limbs have good tone without rigidity or spasticity. There is no atrophy noted in the muscles. Muscle bulk is normal, there is no tenderness to palpation, no myotonia to percussion, and no fasciculations seen. Sensory examination is intact to touch and pin throughout all 4 limbs diffusely. Reflexes are 1/4 in the biceps, triceps, brachioradialis, quadriceps, and Achilles tendons bilaterally. Toes are downgoing with plantar stimulation bilaterally. Peripheral pulses are present and of normal quality distally in all 4 limbs. There is no peripheral edema noted in the limbs. Results & Data Vital Signs (Past 12 Hours) Vital Signs Temp Pulse Pulse Resp BP BP Pulse Ox 01/20/25 06:00 63 18 100/66 96 01/20/25 03:57 69 17 97 01/20/25 03:57 01/20/25 01:00 73 20 109/72 98 01/20/25 01:00 73 20 109/72 98 01/20/25 00:00 72 16 105/69 97 01/19/25 23:26 69 16 115/71 91 01/19/25 23:00 67 18 92/53 L 99 01/19/25 22:12 80 20 127/80 98 01/19/25 21:45 36.9 C 79 22 125/101 H 98 01/19/25 21:43 36.9 C 79 16 125/101 H 98 01/19/25 21:43 36.9 C 79 20 98 Pulse Ox O2 Del Method O2 Del Method O2 Flow Rate 01/20/25 06:00 Room Air 01/20/25 03:57 Room Air 01/20/25 03:57 96 Room Air 01/20/25 01:00 Room Air 01/20/25 01:00 Room Air 01/20/25 00:00 Room Air 01/19/25 23:26 Room Air 01/19/25 23:00 Room Air 01/19/25 22:12 Room Air 01/19/25 21:45 Room Air 01/19/25 21:43 Room Air 0 01/19/25 21:43 Room Air PG Care Time/CCT Total # of Minutes Spent Total Time Spent with Patient: Total time spent is greater than 50% in coordination of care (as documented) at patient's floor/unit and/or counseling patient: Coding Level of Care Code 21123 INT INP/OBS CARE 3/75MIN Diagnoses Seizure R56.9 Acute hyponatremia E87.1 Alcohol use with withdrawal F10.939 Time Spent (min) 75
[2025-01-20] MEDS: POTASSIUM CHLORIDE CRTAB 20 MEQ TABCR PO STA (10:24)
[2025-01-20 12:03] LABS: Anion Gap 8.0 (3-11); Calcium 8.4 mg/dl (8.6-10.3); Carbon Dioxide 25.0 mmol/L (21-32); Chloride 91.0 mmol/L (98-107); Potassium 3.2 mmol/L (3.5-5.1); Sodium 124.0 mmol/L (136-145)
[2025-01-20 12:08] LABS: Blood Urea Nitrogen 17.0 mg/dl (6-23); Creatinine Clr Calc Pharmacy 83.5 ml/min; Glucose 140.0 mg/dl (70-99(Fasting))
--- NOTE | 2025-01-20 13:50 | Hospitalist Progress Note ---
Date of Service January 20, 2025 Assessment & Plan (1) Alcohol use with withdrawal: (2) Acute hyponatremia: (3) Seizure: (4) Left rib fracture: (5) L1 vertebral fracture: Plan Seizure, suspect hyponatremic. DDx includes alcohol withdrawal Patient with alcohol level of 17 on admission following suspected seizure. Did have an elevated prolactin, CK consistent with seizure No prior history of seizure Suspect due to hyponatremia, sodium 117 on admission Patient had 1 prior episode of sudden loss of consciousness concerning for possible seizure-like activity Alcohol use as noted below, although shows no signs of withdrawal with a negative alcohol on admission and suspect this is possible but less likely. UDS positive for marijuana, may be contributing Hyponatremia Patient has minimal salt intake, once daily meals, and also regular alcohol use Sodium 117 on admission. Did receive hypertonic saline and NSS overnight. On recheck patient sodium had jumped to 130 over approximately a 12-hour period. He looks well feels well at the bedside however due to rise of sodium of 13 points within a 24-hour period did start a dextrose infusion to prevent over rapid rise/correction of sodium. Patient has had hyponatremia before and suspect that his station was acute on chronic. On recheck following 500 cc dextrose his sodium 124. Will defer both IVF and hypotonic fluid and trend sodium every 4 hours. Goal rise around 8 mEq per 24-hour period. Patient at bedside is not showing any signs of alcohol withdrawal, has a negative alcohol, and reports he tolerates alcohol free periods well recently although does have daily seltzer intake. He is not diaphoretic or tachycardic at the bedside. Will discontinue gabapentin and continue TOMEKA S if needed. If he develops signs/symptoms of alcohol withdrawal then we will treat with frontloaded benzodiazepine versus phenobarbital protocol at that time however will defer for now. If any further seizure activity is seen in isolation from alcohol withdrawal then we will be loaded with [facility] MRI with and without seizure protocol pending Rib fractures Left last year 03/18? 12th ribs may have been in the setting of CPR performed by at home who was concerned for an arrest Pain adequately controlled at time of bedside visit Tylenol, lidocaine patch, Toradol if needed Satting normally Continue incentive spirometry PT/OT pending L1 transverse process fracture Transverse process fracture Pain control PT/OT Hypertension Normalized following fluids Thiazide held, spironolactone held. BP normal Resume metoprolol/losartan Hyperlipidemia Continue home meds VTE prophylaxis: Continue Lovenox Dispo: PCU for hyponatremia Admission and Anticipated Discharge Date Admission Date: January 19, 2025 Subjective Seen the bedside this morning. He reports he feels well, has good energy, and is not feeling weak or tremulous. No heart racing no sweating. He is concerned about what caused him to pass out and have a seizure. He reports is not the first time recently when he has been going and then all of a sudden was on the ground. He thinks he may have 1 seizure episode last week prior to this. He reports he normally fast throughout the day, and eats dinner. He does drink alcoholic seltzers most days however he reports that he last went 3 days without alcohol periodically including around a week ago, and for a full week over the last holidays with no trouble or signs of withdrawal. He denies any history of tremors, sweating, shakiness related to alcohol. Denies history of DTs Physical Exam Physical Exam: General: A&Ox3. NAD. Cooperative. HEENT: Atraumatic, normocephalic. Vision and hearing grossly intact. Pupils equal and reactive to light Pulm: CTAB A&P. -wheezes, -rales, -rhonchi. Symmetrical chest rise. No increase in work of breathing. No respiratory distress. Cardiac: RRR, -mrg. Radial pulses intact and symmetrical. Abdominal: Nontender, nondistended, soft. BS present. Extremities: Associate Director Qa strength, elbow flexion/extension, hip flexion, ankle dorsiflexion/plantarflexion 5/5 without deficit or asymmetry Results & Data Results & Data Vital Signs (Past 12 Hours) Vital Signs Temp Pulse Pulse Resp BP Pulse Ox Pulse Ox 01/20/25 13:03 36.7 C 71 22 111/92 92 01/20/25 10:31 72 01/20/25 10:00 36.6 C 73 20 110/72 98 01/20/25 06:00 63 18 100/66 96 01/20/25 03:57 69 17 97 01/20/25 03:57 96 O2 Del Method O2 Del Method 01/20/25 13:03 Room Air 01/20/25 10:31 01/20/25 10:00 Room Air 01/20/25 06:00 Room Air 01/20/25 03:57 Room Air 01/20/25 03:57 Room Air PG Care Time/CCT Total # of Minutes Spent Total Time Spent with Patient: Total time spent is greater than 50% in coordination of care (as documented) at patient's floor/unit and/or counseling patient: Coding Level of Care Code 93211 SUB INP/OBS CARE 3/50MIN Diagnoses Alcohol use with withdrawal F10.939 Acute hyponatremia E87.1 Seizure R56.9 Left rib fracture S22.32XA L1 vertebral fracture S32.019A
[2025-01-20 17:43] LABS: Anion Gap 6.0 (3-11); Blood Urea Nitrogen 17.0 mg/dl (6-23); Calcium 8.8 mg/dl (8.6-10.3); Carbon Dioxide 28.0 mmol/L (21-32); Chloride 90.0 mmol/L (98-107); Creatinine Clr Calc Pharmacy 74.4 ml/min; Glucose 86.0 mg/dl (70-99(Fasting)); Potassium 3.6 mmol/L (3.5-5.1); Sodium 124.0 mmol/L (136-145)
[2025-01-20] MEDS: GADOBUTROL 30ML VIAL IV ONE (17:58)
--- NOTE | 2025-01-20 19:19 | Magnetic Resonance Report ---
EXAM: MR brain seizure wo/w con CLINICAL HISTORY: Seizure TECHNIQUE: MRI of the brain was performed with and without intravenous contrast administration ( 6.3 ml Gadavist). Sequences obtained include pre-contrast and post-contrast T1-weighted, T2-weighted, FLAIR (Fluid-Attenuated Inversion Recovery), DWI (Diffusion-Weighted Imaging), and ADC (Apparent Diffusion Coefficient) sequences. COMPARISON: No previous studies are available for comparison. FINDINGS: Brain Parenchyma: No evidence of acute infarction or hemorrhage. A small focal T2/FLAIR hyperintense signal in the right frontal subcortical region. No post-contrast enhancement. Few other tiny T2/FLAIR white matter hyperintense foci are seen. Spear-white matter differentiation is preserved. No other abnormal signal intensity lesions were identified. Empty sella. Post-Contrast Findings: No abnormal enhancement of the brain parenchyma or meninges. Ventricles and Sulci: The ventricular system is within normal limits without evidence of hydrocephalus. The ventricular system, cortical sulci and basal cisterns are prominent, consistent with senile changes. Brainstem and Cerebellum: Normal appearance of the brainstem and cerebellum without focal lesions or abnormal enhancement. Vessels: Intracranial vessels appear normal without evidence of vascular malformations or aneurysms. Skull and Calvarium: No evidence of skull vault lesions or abnormal marrow signal within the calvarium. Mild mucosal wall thickening in the right sphenoid and ethmoid sinuses. IMPRESSION: 1. No evidence of acute intracranial pathology or abnormal contrast enhancement. 2. A small focal T2/FLAIR hyperintense signal in the right frontal subcortical region. Few other tiny T2/FLAIR white matter hyperintense foci. Findings are likely chronic microvascular ischemic changes. 3. Senile brain changes Electronically signed by Loki Adorno 01-20-2025 7:19 PM
[2025-01-20 20:29] LABS: Anion Gap 9.0 (3-11); Blood Urea Nitrogen 21.0 mg/dl (6-23); Calcium 8.6 mg/dl (8.6-10.3); Carbon Dioxide 25.0 mmol/L (21-32); Chloride 90.0 mmol/L (98-107); Creatinine Clr Calc Pharmacy 60.0 ml/min; Glucose 99.0 mg/dl (70-99(Fasting)); Potassium 3.6 mmol/L (3.5-5.1); Sodium 124.0 mmol/L (136-145)
[2025-01-20] MEDS: REMOVE LIDODERM PATCH SCH (20:54)
[2025-01-20] MEDS ORDERED: GABAPENTIN 600 MG TAB PO SCH (22:00)
[2025-01-20] MEDS: LORazepam 1 MG TAB PO STA (23:03)
[2025-01-20] MEDS: MELATONIN 3 MG TAB PO PRN (23:04)
[2025-01-21 01:05] LABS: Anion Gap 7.0 (3-11); Blood Urea Nitrogen 18.0 mg/dl (6-23); Calcium 8.4 mg/dl (8.6-10.3); Carbon Dioxide 25.0 mmol/L (21-32); Chloride 92.0 mmol/L (98-107); Creatinine Clr Calc Pharmacy 75.2 ml/min; Glucose 91.0 mg/dl (70-99(Fasting)); Potassium 3.3 mmol/L (3.5-5.1); Sodium 124.0 mmol/L (136-145)
[2025-01-21 04:30] LABS: Hematocrit (blood only) 28.6 % (42.0-52.0); Hemoglobin 10.0 g/dl (14.0-18.0); Immature Granulocytes # (auto) 0.02 K/uL (0.01-0.20); Immature Granulocytes % (auto) 0.3 %; Mean Corpuscular Hemoglobin 34.6 pg (25.0-34.0); Mean Corpuscular Volume 99.0 fL (80.0-100.0); Platelet Count 284 K/uL (130-400); RDW Standard Deviation 42.5 fL (36.4-46.3); Red Blood Count 2.89 M/uL (4.70-6.10); White Blood Count 6.64 K/ul (4.8-10.8)
[2025-01-21 04:45] LABS: Anion Gap 7.0 (3-11); Blood Urea Nitrogen 15.0 mg/dl (6-23); Calcium 8.3 mg/dl (8.6-10.3); Carbon Dioxide 26.0 mmol/L (21-32); Chloride 95.0 mmol/L (98-107); Creatinine Clr Calc Pharmacy 81.5 ml/min; Glucose 87.0 mg/dl (70-99(Fasting)); Potassium 3.0 mmol/L (3.5-5.1); Sodium 128.0 mmol/L (136-145)
[2025-01-21 04:46] LABS: Alanine Aminotransferase 29.0 U/L (7-52); Albumin Globulin Ratio 1.4 (0.9-2); Alkaline Phosphatase 75.0 U/L (34-104); Anion Gap 7.0 (3-11); Bilirubin,Total 0.9 mg/dl (0.2-1.0); Blood Urea Nitrogen 16.0 mg/dl (6-23); Calcium 8.2 mg/dl (8.6-10.3); Carbon Dioxide 26.0 mmol/L (21-32); Chloride 95.0 mmol/L (98-107); Creatinine Clr Calc Pharmacy 83.5 ml/min; Globulin 2.4 gm/dl (2.5-4.0); Glucose 88.0 mg/dl (70-99(Fasting)); Magnesium 2.0 mg/dl (1.7-2.4); Potassium 3.0 mmol/L (3.5-5.1); Sodium 128.0 mmol/L (136-145); Total Protein 5.7 gm/dl (6.0-8.3)
[2025-01-21] MEDS: POTASSIUM CHLORIDE CRTAB 20 MEQ TABCR PO STA (07:45)
[2025-01-21] MEDS: SODIUM CHLORIDE 0.9% 500 ML IV ONE (07:45)
[2025-01-21] MEDS: LACTATED RINGER'S 1,000 ML IV SCH (08:30)
[2025-01-21 11:18] LABS: Anion Gap 6.0 (3-11); Blood Urea Nitrogen 12.0 mg/dl (6-23); Calcium 8.5 mg/dl (8.6-10.3); Carbon Dioxide 27.0 mmol/L (21-32); Chloride 96.0 mmol/L (98-107); Creatinine Clr Calc Pharmacy 88.3 ml/min; Glucose 98.0 mg/dl (70-99(Fasting)); Potassium 3.7 mmol/L (3.5-5.1); Sodium 129.0 mmol/L (136-145)
[2025-01-21 11:34] VITALS: BP 146/90; RESP 18; TEMP 98.6; O2SAT 92
[2025-01-21] MEDS: POT PHOSPHATE MONOBASIC W/ SOD TAB PO SCH (11:36)
--- NOTE | 2025-01-21 12:29 | Discharge Summary ---
Discharge Summary Date of Service January 21, 2025 Principal Dx & Hospital Course #1 = Principal Diagnosis (1) Alcohol use with withdrawal: (2) Acute hyponatremia: (3) Seizure: (4) Left rib fracture: (5) L1 vertebral fracture: Henny Sequeira is a 64-year-old male with a past medical history of regular alcohol intake, hypertension, no prior history of seizures who presented with a suspected hyponatremic seizure. He was treated initially with hypertonic saline with rapid rise in his sodium which was reversed with D5 and then subsequently had gradually rising sodium levels. Chronically he was slightly volume contracted and severely restricts sodium to history of hypertension in addition to mostly having 1 meal in the evening and being very active during the day. No signs of volume overload and suspect solute depletion. Additionally he does drink a few alcoholic seltzers most days, however he showed no signs of withdrawal during admission and has recently gone several days without any alcohol intake. Do not suspect that his seizure was alcohol induced, and at time of discharge he felt well was ambulating independently around the unit and was not tachycardic warm or diaphoretic. Which may contribute to solute d epletion do not think that it caused his seizure activity. MRI did not show any acute abnormalities or epileptiform foci. Neurology was consulted during admission. Ongoing antiepileptics were not recommended. Seizure, suspect hyponatremic. DDx includes alcohol withdrawal Patient with alcohol level of 117 on admission following suspected seizure. Did have an elevated prolactin, CK consistent with seizure No prior history of seizure Joesph rosas has minimal salt intake, once daily meals, and he is very active cycling. Slightly volume contracted suspect combination of solute depletion and hypovolemic hyponatremia Sodium 117 on admission. Did receive hypertonic saline and NSS overnight following admission. On recheck patient sodium had jumped to 130 over approximately a 12-hour period. He looks well feels well at the bedside however due to rise of sodium of 13 points within a 24-hour period did start a dextrose infusion to prevent over rapid rise/correction of sodium. Patient has had hyponatremia before and suspect that his station was acute on chronic. On recheck following 500 cc dextrose his sodium 124. Gradually improved thereafter with fluids and otherwise diet. - That he did not show any evidence of alcohol withdrawal. There was no tachycardia, diaphoresis, anxiety, or tremulousness. He is going for alcohol free periods of several days recently in a week over the holidays without any difficulty. While he does have a few more alcohol seltzers daily do not think that this contributed to his seizure although it may have contributed somewhat to his solute depletion over time. MRI with and without contrast seizure protocol with senile changes, small right frontal subcortical intensity suspicious for chronic microvascular ischemic changes, no evidence of acute intracranial pathology Sodium gradually improving and and 129 AM of of discharge. Did medically recommend that patient stay until his sodium was at least 130. Patient has had consistent uptrend in his sodium, was walking in the halls independently feeling well without signs of withdrawal or weakness, and strongly preferred discharge home with outpatient recheck of labs on Thursday. He expresses a clear understanding of the risk/benefits of returning home including recurrent seizure if his sodium were to decline and understands medical recommendation would be to wait until level of 130. Given suspected solute depletion with continued improvement with treatment,and he appears reliable in abstaining from excess free water intake and recently staying from seltzer/alcohol on discharge while I do not recommend d/c until sodium level >= 130, but discharging use of salt tablets, liberalize salt intake and recheck on Thursday along with the close supervision of his and not driving factor decision making to not signout strictly AMA. - BMP 01/23 to recheck levels, continue salt tablet 1 g x 3 doses, liberalize salt intakeavoid alcohol/excess free water intake. Patient is agreeable to all of these. He will not operate motor vehicles, cycle or be active until he is continuing to do well through the weekend and has confirmed sodium greater than 130 on Thursday. Thiazide was held. Spironolactone was held metoprolol/losartan were continued. Slightly high blood pressure, recommended addition of amlodipine sedation if needed and high on outpatient recheck. Return prec autions to the ER were discussed Rib fractures Left last year 03/18? 12th ribs may have been in the setting of CPR performed by at home who was concerned for an arrest Tylenol, lidocaine patch, Toradol if needed No hypoxia, pain adequately controlled during admission L1 transverse process fracture Transverse process fracture Pain adequately controlled during admission Hypertension Normalized following fluids Discontinue thiazide. Resume spironolactone 01/23 based if appropriate on PCP followup Continue losartan and metoprolol - Can add amlodipine if needed as outpt Hyperlipidemia Continue home meds Admission HPI Per Admitting Provider Patient is a 64-year-old male with past medical history of hypertension, hyperlipidemia, alcohol use disorder. Patient presented via EMS after an episode of seizure-like activity at home in which his performed CPR for several minutes until EMS arrived. Patient was found to have a sodium of 119, multiple left rib fractures, L1 left transverse process fracture in the ED. He is being admitted for seizures secondary to hyponatremia versus alcohol withdrawal and fracture management. Patient seen at bedside. He received 1mg IV Ativan x2 in the ED and is lethargic however responds to verbal stimuli. He stated he is not in any pain. He stated he typically drinks 4-5 beers per day. He wishes to be full code. The following history was obtained by patient's given patient sleeping. His stated that last week the patient was sick and not eating or drinking much and in bed most of the week, he quit drinking at this time. He was feeling better and they went on a vacation over the weekend in which she was drinking his normal amount again. Throughout this week he has been agitated and going on "rants" and talking frequently. Sometimes he does make sense however often does not when he is going on these rants. She stated the patient did faint last Thursday however did not have seizure-like activity at this time. He got lightheaded when he went from sitting to standing and he remained on his home blood pressure medication despite being sick and with poor p.o. intake. The patient's stated that this evening the patient was extremely agitated especially towards others family members and acting out of the ordinary, saying things that did not make sense. The patient then began having difficulty finding his words and cannot form a sentence. At this point even raise his left arm and started seizing and collapsed to the ground which she helped lower him gently to. Unclear as to how long the event was. He had a snoring like affect after the event and she began CPR because she was not sure what to do. She called EMS who told her to continue CPR until they arrived several minutes later. When EMS was in the home the patient was mildly responsive however confused. She stated the patient has never had a seizure before. Regarding his alcohol use. She stated over the past several years he has started to drink more and is currently in counseling for this. The patient had extreme difficulty quantifying how much he drank, he said approximately 4-5 beers per day, denies liquor use. The patient's stated he goes through 1 pack of seltzer every 2 days which may consist of 12 to 15 cans. He was drinking all day today. The patient's went to her exercise class this evening and is unsure if he continued drinking. His alcohol level is less than 10 in the ER. He does occasionally use chewing tobacco however no significant use that he would need a nicotine patch at this time. Handoff from ER provider stated that they spoke with on-call neurologist regarding seizure-like activity. Will hold off on Keppra load at this time. If patient has another seizure will load Keppra at that time. Will treat this as an alcohol withdrawal seizure at this time and correct patient's sodium. Discharge Plan Discharge Items Patient Disposition: Home - Self-Care Reason For Visit: SEIZURE. ALCOHOL WITHDRAWL, RIB FRACTURES, HYPONAT Discharge Diagnosis: Hyponatremic seizure Condition on Discharge: Fair Activity: Resume your previous activity Non-emergency contact: Primary Care Provider Call non-emergency contact if: you have any medication questions and your symptoms worsen Follow-up/Referrals: Faviola Obando [Primary Care Provider] - (Pt will call Dr. Obando's office on thursday to schedule follow up. [phone]) Diet: Regular Addtl Attending Provider Instructions: You were seen in the hospital for a seizure. This was suspected to be due to low sodium levels, called hyponatremia. Your sodium levels were gradually improving although not yet at goal at time of discharge. It was recommended to remain in hospital until your sodium levels reached 130, they were 129 morning of discharge. Recurrent decline in your sodium levels. Possible seizure which could be life-threatening. You had steady improvement with treatment, and very confident you could remain abstinent from alcohol and liberalize salt. Given this and shared decision making while he understood that the medical recommendation would be to wait until levels are greater than 130, feeling well with continued improvement and discharged home with outpatient repeat check of your BMP on Thursday. This was felt reasonable. You have been discharged with 3 days of sodium chloride tablets, 1 g each morning. Your thiazide has been discontinued, this can affect sodium levels. Please stop taking hydrochlorothiazide. Your spironolactone has temporarily been held, please discuss this with your PCP at your follow-up visit based on your blood work. Continue to take losartan and metoprolol for blood pressure. Do not drive at this time. Please discuss your follow-up labs with your primary care provider and when it is safe to return driving. If you develop any new or worsening symptoms including fever, chills, sweats, chest pain, chest pressure, difficulty breathing, uncontrolled nausea/vomiting, rash, wheezing, passing out or nearly passing out, bleeding, black/bloody bowel movements, or other new or concerning symptoms please call your primary care physician, or call 911 for re-evaluation in the emergency department if you are very concerned. Pending Studies at Discharge: Yes ([facility] 01/22) Stand-Alone Forms: My [facility] [employer] [place], Smoking Cessation Medications and DC Order Prescriptions: New sodium chloride 1,000 mg Tablet,Soluble 1,000 mg PO DAILY Qty: 3 0RF Continued sildenafil 50 mg tablet 50 mg PO .UD PRN (Reason: Erectile Dysfunction) atorvastatin 10 mg tablet 10 mg PO DAILY metoprolol succinate 50 mg tablet extended release 24 hr 50 mg PO DAILY losartan 100 mg tablet 100 mg PO DAILY aspirin 81 mg Tablet,Delayed Release (Dr/Ec) 81 mg PO DAILY Held spironolactone 25 mg tablet 25 mg PO DAILY Hold Instructions: Resume on 01/27/25. Discontinued hydrochlorothiazide 25 mg tablet 25 mg PO DAILY Discharge Orders: Discharge Order (Routine); Ordered 01/21/25 Ordered By: Simba Coley Admission Data Admit Date/Time: 01/19/25 23:54 Attending Provider: Simba Coley Admit Provider: Nick Hargrove Primary Care Provider: Faviola Obando Other Providers: Nick Hargrove; Blayne Cannon Hospital Stay Data Consultations 01/19/25 22:55 ED Decision to Admit Stat 01/20/25 02:18 Consult Neurology Routine Diagnostic Imagining Performed 01/19/25 21:43 CT abd pelvis IV con only Stat CT cervical spine wo con Stat CT facial bones wo con Stat CT head/brain wo con Stat 01/20/25 09:38 MRI Brain [MR brain seizure wo/w con] Routine Discharge Instructions Given to Patient (Per Discharging Provider) You were seen in the hospital for a seizure. This was suspected to be due to low sodium levels, called hyponatremia. Your sodium levels were gradually improving although not yet at goal at time of discharge. It was recommended to remain in hospital until your sodium levels reached 130, they were 129 morning o f discharge. Recurrent decline in your sodium levels. Possible seizure which could be life-threatening. You had steady improvement with treatment, and very confident you could remain abstinent from alcohol and liberalize salt. Given this and shared decision making while he understood that the medical recommendation would be to wait until levels are greater than 130, feeling well with continued improvement and discharged home with outpatient repeat check of your BMP on Thursday. This was felt reasonable. You have been discharged with 3 days of sodium chloride tablets, 1 g each morning. Your thiazide has been discontinued, this can affect sodium levels. Please stop taking hydrochlorothiazide. Your spironolactone has temporarily been held, please discuss this with your PCP at your follow-up visit based on your blood work. Continue to take losartan and metoprolol for blood pressure. Do not drive at this time. Please discuss your follow-up labs with your primary care provider and when it is safe to return driving. If you develop any new or worsening symptoms including fever, chills, sweats, chest pain, chest pressure, difficulty breathing, uncontrolled nausea/vomiting, rash, wheezing, passing out or nearly passing out, bleeding, black/bloody bowel movements, or other new or concerning symptoms please call your primary care physician, or call 911 for re-evaluation in the emergency department if you are very concerned. Total Time Total Time Spent Total Time Spent (In Minutes): Time spend day of discharge 70 minutes including direct patient care, documentation, review of labs and images, and coordination of care. Coding Level of Care Code 30951 INP/OBS DISCH >30 MIN Diagnoses Alcohol use with withdrawal F10.939 Acute hyponatremia E87.1 Seizure R56.9 Left rib fracture S22.32XA L1 vertebral fracture S32.019A
--- NOTE | 2025-01-21 12:40 | Neurology Progress Note ---
Date of Service January 21, 2025 Assessment & Plan (1) Seizure: (2) Acute hyponatremia: (3) Alcohol use with withdrawal: Plan This patient had a seizure on the evening of January 19, likely generalized tonic-clonic due to hyponatremia. Given the patient's history of alcohol use and an alcohol level of 0, an alcohol withdrawal seizure is possible. Currently the patient is doing well and he has no focal deficits, meningeal signs, or encephalopathy. He is not displaying any signs of withdrawal at this time. The etiology of the hyponatremia is likely related to his alcohol use. This morning, sodium level was 129. Hyponatremia can cause seizures and focal neurologic deficits imitating stroke. Recommendations: 1. Hold on anticonvulsants for now. 2. Watch for alcohol withdrawal symptoms treat accordingly 3. Increase activity as able. 4. I have no further specific neurologic recommendations to make at this time except to avoid alcohol is much as possible Overall, I spent a total of 35 minutes with this case including review of records, review of MRI films, direct evaluation of the patient, report generation, and discussion of the case with the patient and RN at bedside and Dr. Coley, including differential diagnosis and treatment options. Admission and Anticipated Discharge Date Admission Date: January 19, 2025 Subjective Patient is feeling well, back to baseline, with no pain or headache, dizziness, or further seizures. Blood pressure is 146/90. CBC showed mild anemia, and most recent sodium was 129. AST was mildly elevated at 40. MRI of the brain with and without contrast was unremarkable for any tumor or stroke. The patient had old nonspecific small vessel ischemic disease of a mild nature and some mild generalized atrophy. This atrophy may be a little more prominent than I would expect for his age. There was no enhancement with contrast. I reviewed these films. Results & Data Vital Signs (Past 12 Hours) Vital Signs Temp Pulse Pulse Resp BP Pulse Ox O2 Del Method 01/21/25 11:32 37.0 C 81 18 146/90 H 92 Room Air 01/21/25 04:08 36.6 C 55 L 16 110/69 94 Room Air 01/21/25 01:30 69 Exam (Neuro) Physical Exam: The patient is awake, alert, and attentive, with normal speech and communication. Mood is normal and affect is appropriate. The patient is fully oriented and has intact long and short term memory. Extraocular eye muscles are intact without nystagmus. Facial strength and symmetry is normal bilaterally. Tongue is midline with normal strength bilaterally. Patient was sitting up out of bed to chair without difficulty. Coordination of the arms is normal, without tremor or ataxia bilaterally. Motor strength is 5/5 in all major muscle groups of the arms and legs bilat erally, both proximally and distally. PG Care Time/CCT Total # of Minutes Spent Total Time Spent with Patient: Total time spent is greater than 50% in coordination of care (as documented) at patient's floor/unit and/or counseling patient: Coding Level of Care Code 18631 SUB INP/OBS CARE 2/35MIN Diagnoses Seizure R56.9 Acute hyponatremia E87.1 Alcohol use with withdrawal F10.939 Time Spent (min) 35
[2025-01-21] MEDS: SODIUM CHLORIDE 1 GM TABLET PO SCH (13:20)
[2025-01-21 14:17] VITALS: PULSE 65
[2025-01-22] MEDS ORDERED: GABAPENTIN 600 MG TAB PO SCH (02:00)
[2025-01-23 13:10] LABS: Marijuana Quant, GCMS Urine 98 ng/mL (<5)
[2025-01-23] MEDS ORDERED: GABAPENTIN 600 MG TAB PO SCH (14:00)
== END 2025-01-21 15:05 | disposition home or self-care (01) | DRG 641 ==
LOC: ED 21:41 → EDINP 23:54 → SUATTDRO 23:54 → 2E 01-20 12:26